=== PATIENT | female | born 1970 | race Caucasian/White ===

== ENCOUNTER 2024-01-14 16:55 | Emergency (ER) | payer MEDICAID, OTHER ==
[~2024-01-14] VITALS: Ht 180.3 cm; Wt 86.4 kg
[~2024-01-14 16:55] MED LIST: CETI10CH PO; HYDR25OIN TOP
[2024-01-14] MEDS ORDERED: IBUP-1022 PO (18:45)
[2024-01-14 18:50] VITALS: BP 130/60; TEMP 98.2; O2SAT 96
[2024-01-14] MEDS: IBUPROFEN 600MG TAB PO ONE (18:51)
== END 2024-01-14 19:16 | disposition home or self-care (01) ==
LOC: EDBD 16:55 → M ED 16:55
DX: S80.02XA Contusion of left knee, initial encounter (principal); Y92.019 Unspecified place in single-family (private) house as the place of occurrence of the external cause; Y93.9 Activity, unspecified; Y99.9 Unspecified external cause status; W19.XXXA Unspecified fall, initial encounter; Z79.1 Long term (current) use of non-steroidal anti-inflammatories (NSAID); Z79.899 Other long term (current) drug therapy

== ENCOUNTER 2024-02-06 22:27 | Inpatient (IN) | payer OTHER ==
[~2024-02-06] VITALS: Ht 180.3 cm; Wt 93.0 kg
[~2024-02-06 22:27] MED LIST changes: +IBUP-1022 PO
[2024-02-06 23:53] LABS: HEMOGLOBIN 11.1 g/dl (12.0-15.5); MEAN CORPUSCULAR HEMOGLOBIN 27.3 pg (27.0-33.0); MEAN CORPUSCULAR HGB CONC 32.6 g/dl (32.0-36.5); MEAN CORPUSCULAR VOLUME 83.7 fl (80.0-96.0); PLATELET COUNT, AUTOMATED 249 10^3/uL (150-450); RED BLOOD COUNT 4.06 10^6/uL (4.00-5.40)
[2024-02-07 00:29] LABS: ETHYL ALCOHOL (ETHANOL) 0.004 % (0.000-0.010)
[2024-02-07 00:30] LABS: SALICYLATE LEVEL < 3.0 MG/DL (<30)
[2024-02-07 00:31] LABS: ALBUMIN 3.1 G/DL (3.2-5.2); ALKALINE PHOSPHATASE 93 U/L (46-116); ALT/SGPT 25 U/L (7.0-40); AST/SGOT 26 U/L (<34); BILIRUBIN,DIRECT 0.1 MG/DL (<0.4); BILIRUBIN,TOTAL 0.3 MG/DL (0.3-1.2); BLOOD UREA NITROGEN 8 MG/DL (9-23); CALCIUM LEVEL 9.5 MG/DL (8.5-10.1); CARBON DIOXIDE LEVEL 29 MMOL/L (20-31); CHLORIDE LEVEL 105 MMOL/L (98-107); CREATININE FOR GFR 0.65 MG/DL (0.55-1.30); GLOMERULAR FILTRATION RATE > 60.0 (>51); GLUCOSE, FASTING 104 MG/DL (60-100); POTASSIUM SERUM 3.4 MMOL/L (3.5-5.1); SODIUM LEVEL 141 MMOL/L (136-145); TOTAL PROTEIN 7.1 G/DL (5.7-8.2)
[2024-02-07 00:33] LABS: THYROID STIMULATING HORMONE 0.014 uIU/ML (0.55-4.78)
[2024-02-07 02:06] LABS: AMPHETAMINES LEVEL URINE NEGATIVE (NEGATIVE); BARBITURATES URINE NEGATIVE (NEGATIVE)
[2024-02-07 02:07] LABS: BENZODIAZEPINES URINE NEGATIVE (NEGATIVE); CANNABINOIDS URINE NEGATIVE (NEGATIVE); COCAINE METABOLITE URINE NEGATIVE (NEGATIVE); METHADONE URINE NEGATIVE (NEGATIVE); OPIATES URINE NEGATIVE (NEGATIVE); PHENCYCLIDINE URINE NEGATIVE (NEGATIVE)
[2024-02-07 08:03] LABS: FREE T4 3.56 NG/DL (0.89-1.76)
[2024-02-07 08:07] LABS: FREE T3 > 20.0 PG/ML (2.3-4.2)
[2024-02-07] MEDS: ACETAMINOPHEN 325 MG TAB PO ONE (08:36)
[2024-02-07] MEDS ORDERED: BIKT1TAB PO (09:05)
[2024-02-07] MEDS ORDERED: PROP20TA72 PO (09:05)
[2024-02-07] MEDS ORDERED: DOCU100C16 PO (09:05)
[2024-02-07] MEDS ORDERED: METH25TAB PO (09:05)
[2024-02-07] MEDS ORDERED: MAALOX 30 ML SUSP *UDC PO PRN (09:35)
[2024-02-07] MEDS ORDERED: MOM 30ML SUSPENSION UDC PO PRN (09:35)
[2024-02-07] MEDS ORDERED: HOME MED LIST COMPLETE! XX SCH (09:45)
[2024-02-07] MEDS ORDERED: ENTER DRUG NAME HERE (PATIENT'S OWN MED) PO SCH (09:55)
[2024-02-07] MEDS ORDERED: DOCUSATE SODIUM 100MG CAPSULE PO PRN (09:55)
[2024-02-07] MEDS: BIKTARVY PO SCH (10:43)
[2024-02-07] MEDS: PROPRANOLOL 20 MG TAB PO SCH ×2 (10:43→20:59)
[2024-02-07 13:20] VITALS: BP 140/63; TEMP 98.8; O2SAT 96
[2024-02-07] MEDS: IBUPROFEN 400MG TAB PO PRN (16:34)
[2024-02-07] MEDS: traZODone 50 MG TAB PO PRN (20:56)
[2024-02-07] MEDS: diphenhydrAMINE 25MG CAP PO PRN (20:59)
[2024-02-08 06:36] VITALS: BP 134/60; TEMP 98.5; O2SAT 95
[2024-02-08] MEDS ORDERED: ENTER DRUG NAME HERE (PATIENT'S OWN MED) PO SCH (09:00)
[2024-02-08 09:02] VITALS: BP 126/64
[2024-02-08] MEDS: BIKTARVY PO SCH (09:04)
[2024-02-08 18:45] VITALS: BP 134/60; TEMP 97.5
[2024-02-09 05:52] VITALS: BP 137/60; TEMP 98.1; O2SAT 95
[2024-02-09 08:32] VITALS: BP 123/60
[2024-02-09 18:39] VITALS: BP 127/68; TEMP 97.7; O2SAT 97
[2024-02-09] MEDS: ACETAMINOPHEN TAB 650MG DOSE (2X325MG) PO PRN (20:38)
[2024-02-10 06:32] VITALS: BP 122/58; TEMP 98.5; O2SAT 95
[2024-02-10 08:36] VITALS: BP 124/58
[2024-02-10] MEDS: PROPRANOLOL 20 MG TAB PO SCH (09:00)
[2024-02-10] MEDS: LURASIDONE HCL 40MG TAB (LATUDA) PO SCH (12:15)
[2024-02-10 16:23] LABS: THYROGLOBULIN ANTIBODY < 15.0 U/ML (<60.0); THYROID PEROXIDASE ANTIBODY 111 U/ML (<60.0)
[2024-02-10 17:30] VITALS: BP 115/57; TEMP 97.6
[2024-02-11 06:38] VITALS: BP 105/57; TEMP 97.1; O2SAT 95
[2024-02-11] MEDS ORDERED: TRAZ-252 PO (12:18)
[2024-02-11] MEDS ORDERED: METH25TAB PO (12:18)
[2024-02-11] MEDS ORDERED: LATU40TA2 PO (12:18)
[2024-02-11] MEDS ORDERED: PROP20TA PO (12:18)
[2024-02-11 18:00] VITALS: BP 139/68
[2024-02-12 15:12] LABS: THRYOGLOBULIN ANTIBODIES (ATA) < 1 IU/mL (< or = 1); THYROGLOBULIN QUANTITATIVE 155.3 ng/mL (2.8-40.9)
== END 2024-02-11 21:24 | disposition home or self-care (01) | DRG 753 ==
LOC: M ED 22:27 → M ED INP 02-07 09:42 → M PSY 02-07 13:29
PROVIDERS: ADMIT Psychiatry & Neurology Psychiatry; ATTEND Student in an Organized Health Care Education/Training Program
DX: F39 Unspecified mood [affective] disorder (principal); Z91.410 Personal history of adult physical and sexual abuse; Z81.8 Family history of other mental and behavioral disorders; Z79.899 Other long term (current) drug therapy; I10 Essential (primary) hypertension; C95.91 Leukemia, unspecified, in remission; E05.00 Thyrotoxicosis with diffuse goiter without thyrotoxic crisis or storm; Z63.0 Problems in relationship with spouse or partner; Z63.8 Other specified problems related to primary support group; Z91.52 Personal history of nonsuicidal self-harm; R45.850 Homicidal ideations; Z81.3 Family history of other psychoactive substance abuse and dependence; Z21 Asymptomatic human immunodeficiency virus [HIV] infection status

== ENCOUNTER 2024-03-19 23:05 | Emergency (ER) | payer OTHER ==
[~2024-03-19] VITALS: Ht 180.3 cm; Wt 88.2 kg
[~2024-03-19 23:05] MED LIST changes: +BIKT1TAB PO; +DOCU100C16 PO; +LATU40TA2 PO; +METH25TAB PO; +PROP20TA PO; +PROP20TA72 PO; +TRAZ-252 PO
[2024-03-20 01:15] LABS: BASO % 0.2 % (0.0-1.0); EOS # 0.2 10^3/uL (0.0-0.5); EOS % 4.1 % (0.0-3.0); HEMATOCRIT 34.5 % (36.0-47.0); HEMOGLOBIN 11.3 g/dl (12.0-15.5); LYMPH # 1.7 10^3/uL (1.5-5.0); LYMPH % 36.5 % (24.0-44.0); MEAN CORPUSCULAR HEMOGLOBIN 27.9 pg (27.0-33.0); MEAN CORPUSCULAR HGB CONC 32.8 g/dl (32.0-36.5); MEAN CORPUSCULAR VOLUME 85.2 fl (80.0-96.0); MONO # 0.7 10^3/uL (0.0-0.8); MONO % 15.7 % (2.0-8.0); NEUTROPHILS % 43.3 % (36.0-66.0); PLATELET COUNT, AUTOMATED 296 10^3/uL (150-450); RED BLOOD COUNT 4.05 10^6/uL (4.00-5.40); WHITE BLOOD COUNT 4.6 10^3/uL (4.0-10.0)
[2024-03-20 01:37] LABS: LIPASE 38 U/L (12-53)
[2024-03-20 01:39] LABS: ALBUMIN 2.8 G/DL (3.2-5.2); ALKALINE PHOSPHATASE 118 U/L (46-116); ALT/SGPT 17 U/L (7.0-40); AST/SGOT 16 U/L (<34); BILIRUBIN,DIRECT < 0.1 MG/DL (<0.4); BILIRUBIN,TOTAL 0.2 MG/DL (0.3-1.2); BLOOD UREA NITROGEN 12 MG/DL (9-23); CALCIUM LEVEL 8.5 MG/DL (8.5-10.1); CARBON DIOXIDE LEVEL 28 MMOL/L (20-31); CHLORIDE LEVEL 104 MMOL/L (98-107); CREATININE FOR GFR 0.62 MG/DL (0.55-1.30); GLOMERULAR FILTRATION RATE > 60.0 (>51); GLUCOSE, FASTING 132 MG/DL (60-100); POTASSIUM SERUM 3.9 MMOL/L (3.5-5.1); SODIUM LEVEL 133 MMOL/L (136-145); TOTAL PROTEIN 7.3 G/DL (5.7-8.2)
[2024-03-20] MEDS: MORPHINE 4 MG/ML 1ML VIAL IV PRN (03:58)
[2024-03-20] MEDS: NS 1,000 ML IV ONE (03:58)
[2024-03-20] MEDS: ONDANSETRON 4MG 2ML VIAL IV ONE (03:58)
[2024-03-20] MEDS ORDERED: ISOVUE-370 76% 100ML VIAL As Ordered ONE (04:11)
[2024-03-20] MEDS ORDERED: ONDA-282 PO (06:48)
[2024-03-20 07:06] VITALS: BP 143/65; TEMP 98.5; O2SAT 97
== END 2024-03-20 07:24 | disposition home or self-care (01) ==
LOC: EDBD 23:05 → M ED 23:05
DX: K52.9 Noninfective gastroenteritis and colitis, unspecified (principal); N28.1 Cyst of kidney, acquired; N83.201 Unspecified ovarian cyst, right side; N83.202 Unspecified ovarian cyst, left side; I10 Essential (primary) hypertension; Z79.83 Long term (current) use of bisphosphonates; Z79.899 Other long term (current) drug therapy
CPT/HCPCS: 74177; 80048; 80076; 81001; 83690; 85025; 87086; 93005; 96374; 99285; J2405; Q9967

== ENCOUNTER 2024-04-10 12:24 | Inpatient (IN) | payer OTHER ==
[~2024-04-10] VITALS: Ht 180.3 cm; Wt 97.0 kg
[~2024-04-10 12:24] MED LIST changes: +ONDA-282 PO
[2024-04-10] MEDS ORDERED: LAMI25TA PO (12:33)
[2024-04-10] MEDS ORDERED: QUET50TA4 PO (12:33)
[2024-04-10] MEDS ORDERED: MIRT1TAB16 PO (12:33)
[2024-04-10 17:23] LABS: HEMATOCRIT 37.4 % (36.0-47.0); HEMOGLOBIN 12.3 g/dl (12.0-15.5); MEAN CORPUSCULAR HEMOGLOBIN 27.7 pg (27.0-33.0); MEAN CORPUSCULAR HGB CONC 32.9 g/dl (32.0-36.5); MEAN CORPUSCULAR VOLUME 84.2 fl (80.0-96.0); PLATELET COUNT, AUTOMATED 301 10^3/uL (150-450); RED BLOOD COUNT 4.44 10^6/uL (4.00-5.40); WHITE BLOOD COUNT 5.5 10^3/uL (4.0-10.0)
[2024-04-10 17:43] LABS: AMPHETAMINES LEVEL URINE NEGATIVE (NEGATIVE)
[2024-04-10 17:47] LABS: BARBITURATES URINE NEGATIVE (NEGATIVE); BENZODIAZEPINES URINE NEGATIVE (NEGATIVE); CANNABINOIDS URINE NEGATIVE (NEGATIVE); COCAINE METABOLITE URINE NEGATIVE (NEGATIVE); METHADONE URINE NEGATIVE (NEGATIVE); OPIATES URINE NEGATIVE (NEGATIVE); PHENCYCLIDINE URINE NEGATIVE (NEGATIVE)
[2024-04-10 17:47] LABS: ETHYL ALCOHOL (ETHANOL) < 0.003 % (0.000-0.010)
[2024-04-10 17:49] LABS: ALBUMIN 3.2 G/DL (3.2-5.2); ALKALINE PHOSPHATASE 120 U/L (46-116); ALT/SGPT 17 U/L (7.0-40); AST/SGOT 15 U/L (<34); BILIRUBIN,DIRECT 0.1 MG/DL (<0.4); BILIRUBIN,TOTAL 0.3 MG/DL (0.3-1.2); BLOOD UREA NITROGEN 11 MG/DL (9-23); CALCIUM LEVEL 9.4 MG/DL (8.5-10.1); CARBON DIOXIDE LEVEL 28 MMOL/L (20-31); CHLORIDE LEVEL 103 MMOL/L (98-107); CREATININE FOR GFR 0.64 MG/DL (0.55-1.30); GLOMERULAR FILTRATION RATE > 60.0 (>51); GLUCOSE, FASTING 117 MG/DL (60-100); POTASSIUM SERUM 4.5 MMOL/L (3.5-5.1); SALICYLATE LEVEL < 3.0 MG/DL (<30); SODIUM LEVEL 137 MMOL/L (136-145); TOTAL PROTEIN 7.8 G/DL (5.7-8.2)
[2024-04-10 17:57] LABS: THYROID STIMULATING HORMONE 0.016 uIU/ML (0.55-4.78)
[2024-04-10] MEDS ORDERED: MOM 30ML SUSPENSION UDC PO PRN (18:15)
[2024-04-10] MEDS ORDERED: MAALOX 30 ML SUSP *UDC PO PRN (18:15)
[2024-04-10] MEDS ORDERED: IBUPROFEN 400MG TAB PO PRN (18:15)
[2024-04-10] MEDS ORDERED: TRAZ-257 PO (18:56)
[2024-04-10] MEDS ORDERED: PROP40TA62 PO ×2 (18:56→21:43)
[2024-04-10] MEDS ORDERED: MIRT-88 PO (18:56)
[2024-04-10] MEDS ORDERED: MED REC IN PROGRESS XX SCH (20:45)
[2024-04-10] MEDS ORDERED: ONDA-282 PO (21:43)
[2024-04-10] MEDS ORDERED: LURA60TA PO (21:43)
[2024-04-10] MEDS ORDERED: HOME MED LIST COMPLETE! XX SCH (21:45)
[2024-04-10] MEDS ORDERED: ACET-897 PO (21:45)
[2024-04-10] MEDS ORDERED: IBUP200C28 PO (21:45)
[2024-04-10 22:52] VITALS: BP 150/68; TEMP 97.7; O2SAT 97
[2024-04-10] MEDS: traZODone 50 MG TAB PO PRN (23:03)
[2024-04-11] MEDS ORDERED: UNRESOLVED PATIENT OWN MED ORDER XX SCH (09:00)
[2024-04-11] MEDS ORDERED: DOCUSATE SODIUM 100MG CAPSULE PO PRN (14:30)
[2024-04-11] MEDS ORDERED: ONDANSETRON 4MG ORAL DISINTEGRATING TAB PO PRN (14:30)
[2024-04-11 15:19] VITALS: BP 128/69; TEMP 97; O2SAT 96
[2024-04-11] MEDS: lamoTRIgine 25MG TAB PO SCH (15:22)
[2024-04-11] MEDS: BIKTARVY PO SCH (15:24)
[2024-04-11] MEDS: MIRTAZAPINE 15 MG TAB PO SCH (20:03)
[2024-04-12 06:13] VITALS: BP 133/73; TEMP 98.1; O2SAT 96
[2024-04-12] MEDS: PROPRANOLOL 20 MG TAB PO SCH (09:50)
[2024-04-12] MEDS: PSEUDOEPHEDRINE 30 MG TAB PO ONE (14:10)
[2024-04-12 16:35] VITALS: BP 154/84; TEMP 97; O2SAT 98
[2024-04-12] MEDS: traZODone 50 MG TAB PO PRN (20:32)
[2024-04-12] MEDS: QUEtiapine FUMARATE 50MG TAB PO SCH (20:32)
[2024-04-13 06:20] VITALS: BP 131/61; TEMP 98.5; O2SAT 97
[2024-04-13] MEDS: ACETAMINOPHEN TAB 650MG DOSE (2X325MG) PO PRN (08:18)
[2024-04-13] MEDS: diphenhydrAMINE 25MG CAP PO PRN (08:24)
[2024-04-13] MEDS ORDERED: MIRT-10 PO (08:38)
[2024-04-13] MEDS ORDERED: TRAZ-252 PO (08:38)
[2024-04-13] MEDS ORDERED: QUET50TA4 PO (08:38)
[2024-04-13 09:00] VITALS: BP 104/55
== END 2024-04-13 11:07 | disposition home or self-care (01) | DRG 751 ==
LOC: M ED 12:24 → M ED INP 18:12 → M PSY 21:49
PROVIDERS: ADMIT Psychiatry & Neurology Psychiatry; ATTEND Psychiatry & Neurology Psychiatry
DX: F33.9 Major depressive disorder, recurrent, unspecified (principal); B20 Human immunodeficiency virus [HIV] disease; Z91.411 Personal history of adult psychological abuse; Z91.410 Personal history of adult physical and sexual abuse; I10 Essential (primary) hypertension; Z79.899 Other long term (current) drug therapy

== ENCOUNTER 2024-05-05 01:35 | Emergency (ER) | payer MEDICAID, OTHER ==
[~2024-05-05] VITALS: Ht 180.3 cm; Wt 99.1 kg
[~2024-05-05 01:35] MED LIST changes: +ACET-897 PO; +IBUP200C28 PO; +LAMI25TA PO; +LURA60TA PO; +MIRT-10 PO; +MIRT-88 PO; +MIRT1TAB16 PO; +PROP40TA62 PO; +QUET50TA4 PO; +TRAZ-257 PO
[2024-05-05 07:21] VITALS: BP 130/63; TEMP 97.7; O2SAT 95
== END 2024-05-05 07:35 | disposition home or self-care (01) ==
LOC: M ED 01:35
DX: R05.9 Cough, unspecified (principal); R09.81 Nasal congestion; J45.909 Unspecified asthma, uncomplicated; B20 Human immunodeficiency virus [HIV] disease; F41.9 Anxiety disorder, unspecified; F32.A Depression, unspecified

== ENCOUNTER → 2024-06-21 | Outpatient (CLI) | payer OTHER ==
[2024-06-21 16:18] LABS: FREE T4 6.67 NG/DL (0.89-1.76)
[2024-06-21 16:20] LABS: ALBUMIN 3.3 G/DL (3.2-5.2); ALKALINE PHOSPHATASE 140 U/L (35-104); ALT/SGPT 23 U/L (7.0-40); AST/SGOT 22 U/L (<34); BILIRUBIN,TOTAL 0.4 MG/DL (0.3-1.2); BLOOD UREA NITROGEN 17 MG/DL (9-23); CALCIUM LEVEL 10.1 MG/DL (8.5-10.1); CARBON DIOXIDE LEVEL 23 MMOL/L (20-31); CHLORIDE LEVEL 108 MMOL/L (98-107); CHOLESTEROL LEVEL 155 MG/DL (<200); CHOLESTEROL RISK RATIO 4.22 (<5); CREATININE FOR GFR 0.62 MG/DL (0.55-1.30); GLOMERULAR FILTRATION RATE > 60.0 (>51); GLUCOSE, FASTING 125 MG/DL (60-100); HDL CHOLESTEROL 36.7 MG/DL (>40); HEPATITIS B SURFACE ANTIBODY NEGATIVE (POSITIVE); LDL CHOLESTEROL 85.3 MG/DL (<100); NON-HDL-C 118.3 MG/DL; POTASSIUM SERUM 4.6 MMOL/L (3.5-5.1); SODIUM LEVEL 138 MMOL/L (136-145); TOTAL PROTEIN 8.3 G/DL (5.7-8.2); TRIGLYCERIDES LEVEL 165 MG/DL (<150)
[2024-06-21 16:22] LABS: THYROID STIMULATING HORMONE 0.008 uIU/ML (0.55-4.78)
[2024-06-21 16:25] LABS: TOTAL T3 423.5 NG/DL (60.0-181.0)
[2024-06-21 16:34] LABS: HEPATITIS B SURFACE ANTIGEN NEGATIVE (NEGATIVE)
[2024-06-21 16:51] LABS: HEPATITIS C VIRUS ABY INDEX 0.27 INDEX (<0.8)
== END ==
LOC: M PLALAB 13:58
PROVIDERS: ATTEND Internal Medicine Infectious Disease
DX: B20 Human immunodeficiency virus [HIV] disease (principal)